=== PATIENT | female | born 1995 | race African-American/Black ===

== ENCOUNTER 2016-06-22 10:55 | Emergency (ER) | payer OTHER ==
--- NOTE | ~2016-06-22 | EKG ---
PATIENT: CHARLIE MENA UNIT #: [id number] Ventricular Rate: 66 BPM Atrial Rate: 66 BPM P-R Interval: 136 ms QRS Duration: 72 ms Q-T Interval: 454 ms QTC Calculation(Bezet): 475 ms P [place]: 53 degrees Calculated R [place]: 86 degrees Calculated T [place]: 88 degrees Diagnosis Line: Normal sinus rhythm Diagnosis Line: Nonspecific T wave abnormality Diagnosis Line: Prolonged QT Diagnosis Line: Abnormal ECG Diagnosis Line: No previous ECGs available Diagnosis Line: Confirmed by BI RIVERO MD ([id number]) on 06/30/2016 Diagnosis Line: 11:51:52 AM INTERPRETING MD: MAT OWENS
--- NOTE | ~2016-06-22 | CR72 ---
[facility]. [facility] A Service of [facility] RADIOLOGY TEXT RESULTS PATIENT: CHARLIE MENA LOCATION: SED : 95 UNIT #: [id number] AGE: [address]: Oskar Chaudhry MD SEX: F ORDER DR: [id number] [place] [id number] E MR#: [id number] Acc #: [id number] NAME: CHARLIE MENA : 1995 SEX: F STUDY DATE/TIME: 06/22/2016 11:44 UNIT: SED ROOM: STUDY DESCRIPTION: CR Chest Single View Portable Attending Physician: Oskar Chaudhry M.D. Ordering Physician: Oskar Chaudhry M.D. Primary Care Physician: Usha Jay M.D. MEDICAL IMAGING REPORT This report is preliminary unless electronic signature is present. EXAM Portable chest x-ray, 06/22/2016 HISTORY Chest pain. Heart surgery as infant. Asthma. Symptoms began this a.m. FINDINGS AP radiograph of chest presented. Comparison to thoracic spine series 06/02/2015. Stable thoracolumbar scoliosis. No acute appearing bony abnormality. Stable mild cardiac enlargement. The lungs are well inflated. There is no compelling evidence of acute infectious or inflammatory disease, pleural effusion or pneumothorax. No suspicious nodule. Dictated by... Malik Ramos M.D. THIS IS AN ELECTRONICALLY VERIFIED REPORT Malik Ramos M.D. at 06/28/2016 10:21 PM Adrianne TD: 06/22/2016 13:18 JOB #: [id number] MEDICAL IMAGING REPORT Page 1 of 1
[~2016-06-22 10:55] MED LIST: BENZONATATE PO; IBUPROFEN800 MG PO; MUCINEX OTC; NO MEDICATIONS; PHENERGAN25 MG PO; ROBITUSSIN A-C S5 ML PO
== END 2016-06-22 13:09 | disposition home or self-care (01) ==
LOC: SED 10:55
DX: R07.9 Chest pain, unspecified (principal)
CPT/HCPCS: 71010; 93005; 99284